=== PATIENT | male | born 1955 | race Caucasian/White ===

== ENCOUNTER 2017-11-25 22:34 | Inpatient (IN) | payer OTHER ==
[~2017-11-25] VITALS: Ht 180.3 cm; Wt 70.7 kg
--- NOTE | ~2017-11-25 | HC ---
[facility] [place] [address] CONSULTATION Name: LINA ALARCON Room #: 217-P [facility] IN ..#: [id number] Admission: 11/25/17 Attend Phys: Manuel Oliver MD Discharge: 11/28/17 Date of : 59 Report #: [id number] THIS REPORT FOR: //name// CC: FAM ernesto Mares MD DATE OF SERVICE: 11/26/2017 HISTORY OF PRESENT ILLNESS: The patient is a 62-year-old male with a recent hospitalization at his local hospital for chest pain and GI bleed. The patient has a previous history of coronary artery disease. He underwent a cardiac catheterization during this hospitalization, which lasted from 11/14/2017 to 11/19/2017. Apparently, he had a new stent placed. At that time, he had an upper GI bleed, underwent an upper endoscopy that showed esophagitis, gastritis and a duodenal ulcer that was apparently clipped. He did have a drop in his hemoglobin and was transfused 4 units of packed cells during the hospitalization. He had a repeat upper endoscopy prior to his discharge and there was no evidence of bleeding. It appeared the ulcer was healing well per the report. He was discharged on PPI therapy, but also on aspirin and Plavix. His last dose of aspirin and Plavix was yesterday. He did have recurrent chest pain, which was the reason for admission and transfer. He denies any chest pain today. No shortness of breath. He denies any hematemesis since his last hospitalization. He was having melanotic stools during that hospitalization, but he now denies any further melena. He does report, however, a small amount of bright red blood per rectum at times. He has had 2 or 3 episodes in the last few days. He denies any abdominal pain. He denies any anal canal pain. No previous history of colonoscopy. No family history of colon cancer. His hemoglobin on discharge from previous hospitalization was 10.3, his hemoglobin here is 9.2 this morning and it was 9.1 on admission. He denies any fevers or chills. ALLERGIES: No known drug allergies. PAST MEDICAL HISTORY: Coronary artery disease, status post stent placement recently; history of upper GI bleed due to duodenal ulcer, as described above; also history of esophagitis and gastritis, the patient has been on PPI therapy; hypercholesterolemia; hypertension and degenerative joint disease. MEDICATIONS: On admission, Lopressor, aspirin, Plavix, Ventolin, vitamin C, Lipitor, Celexa, folic acid, Cheraw, Zestril, Protonix 40 mg every day, multivitamin and thiamine. REVIEW OF SYSTEMS: As per HPI. [address] [address] CONSULTATION Name: LINA ALARCON Room #: 217-P [facility] IN M.R.#: [id number] Admission: 11/25/17 Attend Phys: Manuel Oliver MD Discharge: 11/28/17 Date of : 59 Report #: [id number] FAMILY HISTORY: Negative for colon cancer or inflammatory bowel disease. SOCIAL HISTORY: He has a long history of cigarette smoking. He consumes alcohol on a daily basis. PHYSICAL EXAMINATION: VITAL SIGNS: Temperature is 98.6, pulse 89, blood pressure 138/78 and respiratory rate is 22. GENERAL: He is alert and oriented x 3, in no acute distress. HEENT: Sclerae nonicteric. Oropharynx clear. NECK: Supple, without lymphadenopathy. CARDIOVASCULAR: Regular rate and rhythm. CHEST: Clear to auscultation bilaterally. ABDOMEN: Soft. He is nontender, nondistended. Normoactive bowel sounds. EXTREMITIES: No cyanosis, clubbing or edema. LABORATORY DATA: Sodium 132, potassium 4.3, chloride 99, bicarbonate 24, BUN 7, creatinine 0.8 and glucose 97. AST is 18, total bilirubin 0.5, direct bilirubin 0.2, calcium 8.8, alkaline phosphatase 61 and ALT is 14. Total protein 6.1. Albumin is 2.8. Cholesterol 89. WBC is 10.0, hemoglobin 9.2, MCV is 84.8 and platelet count is 353,000. TSH 0.531. Troponin less than 0.06. ASSESSMENT AND PLAN: 1. Anemia, history of recent upper gastrointestinal bleed. The patient had a duodenal ulcer that was bleeding during that hospitalization. He has not had any melanotic stools since then. His hemoglobin is fairly stable; it was 10.3 on discharge from that hospitalization and it is 9.1 at this time. I do not think he needs a repeat upper endoscopy at this time unless his symptoms change. We would continue PPI therapy. 2. Bright red blood per rectum. At some point, the patient needs a colonoscopy; however, due to his recent anticoagulation therapy as well as being on aspirin and Plavix, may consider holding this to a later date. If the patient has significant bleeding, we will proceed with colonoscopy. We will continue to monitor his hemoglobin closely. Thank you for allowing me to participate in his care. <ELECTRONICALLY SIGNED> By: Bill Winter MD 12/06/17 0823 1108 2311 Bill Winter MD /nt
--- NOTE | ~2017-11-25 | EKG ---
[address] [address] ELECTROCARDIOGRAM REPORT Name: LINA ALARCON Room #: 217- ADM IN M.R.#: [id number] Admission: 11/25/17 Attend Phys: Fang Webb Discharge: Date of : 59 Report #: [id number] THIS REPORT FOR: //name// [facility] Test Date: 2017-11-26 Test Time: 08:10:28 Pat Name: LINA ALARCON Department: Room: 217 Gender: M Protection Specialist: LELIA : 1955 Requested By: Brenna Prater Order Number: [id number] MD: Bebo Mares Measurements Intervals [place] Rate: 74 P: 57 TN: 161 QRS: -26 QRSD: 96 T: 17 QT: 394 QTc: 438 Interpretive Statements Sinus rhythm Borderline left axis deviation No previous ECG available for comparison Electronically Signed On 11-26-2017 13:31:43 CDT by Bebo Mares [email or web address] <ELECTRONICALLY SIGNED> By: Bebo Mares MD 11/26/17 1331 0810 08 Bebo Mares MD /RILEY
--- NOTE | ~2017-11-25 | 2DMMODE ---
[facility] [email or web address] [address] 2 D/M-MODE ECHOCARDIOGRAM Name: DORIANLINA Hogan Room #: 217-P ADM IN M.R.#: [id number] Admission: 11/25/17 Attend Phys: Manuel Oliver MD Discharge: Date of : 59 Date of Service: 11/27/17 1315 Report #: [id number] THIS REPORT FOR: //name// APPROVED REPORT Study performed: 11/27/2017 11:29:53 EXAM: Comprehensive 2D, Doppler, and color-flow Echocardiogram Patient Location: Echo lab Room #: [facility] Status: routine BSA: 1.90 HR: 67 bpm BP: 145/68 mmHg Rhythm: NSR Other Information Study Quality: Adequate/Lung disease, coughing Indications Chest pain. Recent history of stent to RCA. Hx: HTN, PAD, tobacco abuse. 2D Dimensions RVDd: 35.91 mm IVSd: 9.84 (7-11mm) LVOT Diam: 22.23 (18-24mm) LVDd: 49.09 mm PWd: 9.84 (7-11mm) Ascending Ao: 33.17 (22-36mm) LVDs: 32.53 (25-40mm) Aortic Root: 34.98 mm Volumes Left Atrial Volume (Systole) Single Plane 4CH: 43.88 mL Single Plane 2CH: 42.10 mL LA ESV Index: 24.00 mL/m2 Aortic Valve AoV Peak Maury.: 0.97 m/s AO Peak Gr.: 3.79 mmHg LVOT Max P.96 mmHg LVOT Max V: 0.86 m/s SANJAY Vmax: 3.43 cm2 Mitral Valve E/A Ratio: 2.4 MV Decel. Time: 151.20 ms [facility] [place] [place] [address] 2 D/M-MODE ECHOCARDIOGRAM Name: LINA ALARCON Room #: 217-P [facility] IN .R.#: [id number] Admission: 11/25/17 Attend Phys: Manuel Oliver MD Discharge: Date of : 59 Date of Service: 11/27/17 1315 Report #: [id number] MV E Max Maury.: 0.89 m/s MV A Maury.: 0.37 m/s MV PHT: 43.85 ms IVRT: 83.04 ms Pulmonary Valve PV Peak Maury.: 0.80 m/s PV Peak Gr.: 2.56 mmHg Pulmonary Vein P Vein S: 0.38 m/s P Vein A: 0.34 m/s P Vein D: 0.56 m/s P Vein A Dur.: 124.6 msec P Vein S/D Ratio: 0.68 Tricuspid Valve TR Peak Maury.: 2.53 m/s RAP Estimate: 5.00 mmHg TR Peak Gr.: 25.65 mmHg PA Pressure: 31.00 mmHg Left Ventricle The left ventricle is normal size. There is normal LV segmental wall motion. There is normal left ventricular wall thickness. The overall left ventricular systolic function appears normal. LVEF is 60-65%. The left ventricular diastolic function is normal. Right Ventricle The right ventricle is normal size. The right ventricular systolic function is normal. Atria The left atrium size is normal. The right atrium size is normal. Aortic Valve The aortic valve is normal in structure. Minimal aortic regurgitation. There is no aortic valvular stenosis. Mitral Valve The mitral valve is normal in structure. Trace mitral regurgitation. No evidence of mitral valve stenosis. Tricuspid Valve The tricuspid valve is normal in structure. Trace to mild tricuspid regurgitation. Estimated PAP is 30-35mmHg. Pulmonic Valve The pulmonary valve is normal in structure. Trace pulmonic [facility] [address] [place] [address] 2 D/M-MODE ECHOCARDIOGRAM Name: LINA ALARCON Room #: 217-P [facility] IN ..#: [id number] Admission: 11/25/17 Attend Phys: Manuel Oliver MD Discharge: Date of : 59 Date of Service: 11/27/17 1315 Report #: [id number] regurgitation. Great Vessels The aortic root is normal in size. The ascending aorta is normal in size. IVC is normal in size and collapses >50% with inspiration. Pericardium There is no pericardial effusion. <Conclusion> The left ventricle is normal size. There is normal left ventricular wall thickness. The overall left ventricular systolic function appears normal. LVEF is 60-65%. The left ventricular diastolic function is normal. The right ventricle is normal size. The left atrium size is normal. The right atrium size is normal. The aortic valve is normal in structure. Minimal aortic regurgitation. There is no aortic valvular stenosis. The mitral valve is normal in structure. Trace mitral regurgitation. There is no pericardial effusion. <ELECTRONICALLY SIGNED> By: Bebo Mares MD 11/27/17 1315 1315 1315 Bebo Mares MD /INF
[2017-11-25] MEDS ORDERED: LOPRESSOR50 PO (23:33)
[2017-11-25] MEDS ORDERED: CHILDREN'S ASPI81 MG PO (23:34)
[2017-11-26] MEDS ORDERED: VENTOLIN HFA 1818 GM INH (00:17)
[2017-11-26] MEDS ORDERED: VITAMINC500 PO (00:17)
[2017-11-26] MEDS ORDERED: ATORVASTATIN CA40 MG PO (00:18)
[2017-11-26] MEDS ORDERED: CELEXA40 MG PO (00:19)
[2017-11-26] MEDS ORDERED: PLAVIX 75 MG TA75 M1 PO (00:19)
[2017-11-26] MEDS ORDERED: FOLIC ACID1 MG PO (00:20)
[2017-11-26 00:21] VITALS: BP 135/78
[2017-11-26] MEDS ORDERED: NORCO 7.5-3251 EACH PO (00:21)
[2017-11-26] MEDS ORDERED: LISINOPRIL20 MG PO (00:22)
[2017-11-26] MEDS ORDERED: UNICOMPLEX M TA1 TA1 PO (00:23)
[2017-11-26] MEDS ORDERED: PROTONIX40 M1 PO (00:23)
[2017-11-26] MEDS ORDERED: B-1100 MG PO (00:24)
[2017-11-26 01:35] LABS: HEMATOCRIT 26.1 % (42.0-52.0); HEMOGLOBIN 9.1 gm/dL (14.0-18.0)
[2017-11-26 04:59] VITALS: BP 140/75
[2017-11-26 05:50] LABS: HEMATOCRIT 27.6 % (42.0-52.0); HEMOGLOBIN 9.2 gm/dL (14.0-18.0); MCH 28.4 pg (26.0-34.0); MCHC 33.4 g/dL (28.0-37.0); MCV 84.8 fL (80.0-100.0); RBC 3.26 mil/uL (4.50-6.00); RDW 16.9 % (10.5-14.5)
[2017-11-26 05:59] LABS: CALCIUM 8.8 mg/dL (8.5-10.1); CREATININE 0.8 mg/dL (0.7-1.3); POTASSIUM 4.3 mmol/L (3.5-5.1)
[2017-11-26 06:06] LABS: CHOLESTEROL 89 mg/dL (<200); HDL CHOLESTEROL 52 mg/dL (>40); LDL CHOLESTEROL 33 mg/dL (<100); TC:HDL 1.7 Ratio (Not establshd); TRIGLYCERIDE 23 mg/dL (<150); VLDL 5 mg/dL (<40)
[2017-11-26 06:07] LABS: SERUM ASSESSMENT Clear
[2017-11-26 07:11] LABS: ALBUMIN 2.8 g/dL (3.4-5.0); DIRECT BILIRUBIN 0.2 mg/dL (<0.1-0.3); TOTAL BILIRUBIN 0.5 mg/dL (<0.1-1.0); TOTAL PROTEIN 6.1 g/dL (6.4-8.2)
[2017-11-26 07:33] VITALS: BP 138/78
[2017-11-26 12:09] VITALS: BP 150/83
[2017-11-26 15:47] VITALS: BP 150/91
[2017-11-26 20:07] VITALS: BP 127/70
[2017-11-27 00:27] LABS: ABSOLUTE NEUTROPHILS 8.3 thou/uL (1.4-8.2); BASOPHILS 0.3 % (0.0-2.0); EOSINOPHILS 1.8 % (0.0-3.0); HEMATOCRIT 26.2 % (42.0-52.0); LYMPHOCYTES 7.7 % (24.0-44.0); MCH 29.1 pg (26.0-34.0); MCHC 34.4 g/dL (28.0-37.0); MCV 84.6 fL (80.0-100.0); MONOCYTES 9.5 % (1.0-8.0); PLATELET COUNT 357 thou/uL (150-400); POLYS 80.7 % (36.0-66.0); RBC 3.09 mil/uL (4.50-6.00); WBC 10.3 thou/uL (4.0-11.0)
[2017-11-27 03:22] LABS: HEMATOCRIT 26.3 % (42.0-52.0); MCH 28.6 pg (26.0-34.0); MCHC 34.1 g/dL (28.0-37.0); MCV 83.9 fL (80.0-100.0); RBC 3.13 mil/uL (4.50-6.00); RDW 16.9 % (10.5-14.5); WBC 9.8 thou/uL (4.0-11.0)
[2017-11-27 03:34] LABS: CALCIUM 8.9 mg/dL (8.5-10.1); CREATININE 0.8 mg/dL (0.7-1.3); POTASSIUM 4.2 mmol/L (3.5-5.1)
[2017-11-27 03:42] VITALS: BP 139/83
[2017-11-27 08:25] VITALS: BP 145/68
[2017-11-27 14:54] VITALS: BP 143/78
[2017-11-27 14:58] VITALS: BP 122/72
[2017-11-27 15:03] VITALS: BP 133/73
[2017-11-27 20:36] VITALS: BP 134/72
[2017-11-28 04:04] LABS: CALCIUM 9.2 mg/dL (8.5-10.1); CREATININE 0.8 mg/dL (0.7-1.3); POTASSIUM 3.7 mmol/L (3.5-5.1)
[2017-11-28 04:10] VITALS: BP 130/72
[2017-11-28 04:27] LABS: ABSOLUTE NEUTROPHILS 7.1 thou/uL (1.4-8.2); BASOPHILS 0.5 % (0.0-2.0); EOSINOPHILS 2.8 % (0.0-3.0); HEMATOCRIT 26.8 % (42.0-52.0); LYMPHOCYTES 10.6 % (24.0-44.0); MCH 28.1 pg (26.0-34.0); MCHC 33.5 g/dL (28.0-37.0); MONOCYTES 11.1 % (1.0-8.0); PLATELET COUNT 375 thou/uL (150-400); RBC 3.19 mil/uL (4.50-6.00); RDW 17.1 % (10.5-14.5); WBC 9.5 thou/uL (4.0-11.0)
[2017-11-28 08:18] VITALS: BP 133/62
[2017-11-28] MEDS ORDERED: BENZONATATE100 MG PO (10:45)
[2017-11-28] MEDS ORDERED: LASIX 20 MG TAB20 MG PO (10:49)
[2017-11-28 10:59] VITALS: BP 126/72
[2017-11-28 15:10] VITALS: BP 143/79
[2017-11-28] MEDS ORDERED: KLOR-CON20 ME1 PO (16:44)
[2017-11-28] MEDS ORDERED: CEFUROXIME500 MG PO (16:44)
[2017-11-28 16:52] VITALS: BP 143/79
== END 2017-11-28 19:00 | disposition home or self-care (01) | DRG 378 ==
LOC: 2N 22:34
PROVIDERS: Hospitalist; Nurse Practitioner Acute Care
DX: K62.5 Hemorrhage of anus and rectum (principal); D62 Acute posthemorrhagic anemia; R07.9 Chest pain, unspecified; I25.10 Atherosclerotic heart disease of native coronary artery without angina pectoris; I10 Essential (primary) hypertension; F17.210 Nicotine dependence, cigarettes, uncomplicated; M19.90 Unspecified osteoarthritis, unspecified site; F10.10 Alcohol abuse, uncomplicated; K27.9 Peptic ulcer, site unspecified, unspecified as acute or chronic, without hemorrhage or perforation; I73.9 Peripheral vascular disease, unspecified; E78.5 Hyperlipidemia, unspecified; Z71.6 Tobacco abuse counseling; Z95.5 Presence of coronary angioplasty implant and graft; Z82.49 Family history of ischemic heart disease and other diseases of the circulatory system; Z80.51 Family history of malignant neoplasm of kidney; I25.2 Old myocardial infarction; Z95.828 Presence of other vascular implants and grafts
CPT/HCPCS: 10081

== ENCOUNTER 2018-01-01 15:50 | Inpatient (IN) | payer OTHER ==
[~2018-01-01] VITALS: Ht 180.3 cm; Wt 66.5 kg
--- NOTE | ~2018-01-01 | EKG ---
[address] [place] [address] ELECTROCARDIOGRAM REPORT Name: LINA ALARCON Room #: 350-P ADM IN M.R.#: [id number] Admission: 01/01/18 Attend Phys: Manuel Oliver MD Discharge: Date of : 59 Report #: [id number] THIS REPORT FOR: //name// [facility] Test Date: 2018-01-01 Test Time: 22:05:33 Pat Name: LINA ALARCON Department: Room: 350 P Gender: M Pouncer: Toby MORENO : 1955 Requested By: Sagar Westbrook Order Number: [id number] MD: Facundo Arora Measurements Intervals [place] Rate: 67 P: 22 ID: [id number] QRS: -20 QRSD: 102 T: 16 QT: 420 QTc: 444 Interpretive Statements Sinus rhythm Borderline left axis deviation Compared to ECG 11/26/2017 08:10:28 No significant changes Electronically Signed On 01-02-2018 7:42:13 [employer] DEVEL[employer] by Facundo Arora [email or web address] <ELECTRONICALLY SIGNED> By: Facundo Arora MD, [facility] 01/02/18 0742 04 04 Facundo Arora MD, [facility] /EPI
--- NOTE | ~2018-01-01 | HC ---
[facility] [place] [address] [place] [address] CONSULTATION Name: LINA ALARCON Room #: 350-P ADM IN M.R.#: [id number] Admission: 01/01/18 Attend Phys: Manuel Oliver MD Discharge: Date of : 59 Report #: [id number] THIS REPORT FOR: //name// CC: LAURA COATS FAM unknown Manuel Oliver DATE OF SERVICE: 01/01/2018 HISTORY OF PRESENT ILLNESS: The patient is a 62-year-old male seen last month by my partner, Dr. Mares. It looks like he had had a Synergy stent placed, a 3.5 x 13 Synergy stent placed to his RCA in [place], [place] on 11/14/2017. Apparently, he had some complications with some bleeding issues and had had hematochezia, dark stools. He had received a transfusion there. This was shortly after and then subsequently had clipping or some kind of therapeutic clipping of a duodenal ulcer and marked esophagitis on EGD. He comes in with some weakness and near syncope. Found to be anemic again, dark stools. Some orthostatic hypotension. CT scan was negative for a bleed. He was transferred here from [place]. He denies any anginal type symptoms. His last aspirin and Plavix dose were yesterday. He states he has been taking them, although I would certainly question his compliance. MEDICATIONS: He is also currently taking Lasix 20, potassium, Ceftin, metoprolol, Lipitor 40, Celexa, Plavix 75, folic acid, lisinopril 20, thiamine and multivitamin. PAST MEDICAL HISTORY: Positive for coronary artery disease with a stent placement, Synergy stent to the RCA. There are prior bilateral iliac stents from a stent card, hypertension, hypercholesterolemia, tobacco and alcohol abuse, history of GI bleeding with duodenal ulcer and esophagitis, DJD, COPD. FAMILY HISTORY: Extremely positive. Parents, brother and sister all have had either infarcts or bypass surgeries. He is trying to get disability. SOCIAL HISTORY: He is , lives somewhat independently. REVIEW OF SYSTEMS: Negative except for some nocturia and as stated above. LABORATORY WORK: Sodium 120. This is upon transfer. H and H was 7.0 and 21.9. Creatinine was 0.8. Troponin was negative. Alcohol level was 79. Magnesium was 1.9. Urine was unremarkable. CT of the head did not show any bleeding. EKG was sinus rhythm, leftward axis, nonspecific changes. PHYSICAL EXAMINATION: GENERAL: He is in no distress. He is alert. No chest pain. VITAL SIGNS: Blood pressure 170/80, pulse is 70s. [address] [address] CONSULTATION Name: LINA ALARCON Room #: 350-P [facility] IN M.R.#: [id number] Admission: 01/01/18 Attend Phys: Manuel Oliver MD Discharge: Date of : 59 Report #: [id number] HEENT: Eyes reveal xanthelasmas. Pharynx is clear. He is partially edentulous. NECK: Shows preserved upstrokes without JVD or bruits. LUNGS: Clear. CARDIOVASCULAR: Regular rate and rhythm, S1, S2 distant. ABDOMEN: Slightly tender in the epigastrium. Negative Degroot's. No rebound. Bowel sounds are noted. EXTREMITIES: Reveal trace of edema. Distal pulses diminished. There are bilateral femoral bruits. NEUROLOGIC: Intact. MUSCULOSKELETAL: No gross joint deformity. SKIN: Warm and dry. ASSESSMENT: 1. Coronary artery disease with drug-eluting stent placed to his right coronary artery 11/14/2017. 2. Peripheral vascular disease with history of bilateral iliac stents. 3. Chronic obstructive pulmonary disease, continued tobacco abuse. 4. Hypertension. 5. Hypercholesterolemia. 6. Strong family history of premature coronary artery disease. 7. Alcohol abuse. RECOMMENDATIONS AND PLAN: Obviously, we are having some active bleeding. There is going to need to be transfusion. GI has been planning a colonoscopy and EGD in the morning. We will need to give some strong consideration of restarting at least 1 antiplatelet agent and 6 weeks coronary drug-eluting stent. Risk could be high for a possible acute stent thrombosis without antiplatelet agents. Would like to initiate this, but depending on what GI findings in the morning. We will discuss with them in primary holding on antiplatelet medications. Discussed with Dr. Love lizarraga. Thank you for asking me to assist in the care of this patient. By: 2148 1256 Sagar Westbrook MD, [facility] /nt
--- NOTE | ~2018-01-01 | P ---
[facility] [place] [place] [address] PROCEDURE REPORT Name: LINA ALARCON Room #: 350-P [facility] IN M.R.#: [id number] Admission: 01/01/18 Attend Phys: Manuel Oliver MD Discharge: Date of : 59 Report #: [id number] THIS REPORT FOR: //name// CC: LAURA Monzon FAM unknown Manuel Oliver BRIEF HISTORY: The patient is a 62-year-old male with multiple medical problems who has a history of a month or so ago of bleeding with peptic ulcer disease, which required endoclip placement. Since that time, he has had continued drop in hemoglobin and was transferred to [facility] for the same reason. PREOPERATIVE DIAGNOSIS: History of ulcer disease with a drop in hemoglobin and anemia. POSTOPERATIVE DIAGNOSES: 1. Moderately diffuse gastritis with erythema in the antrum and nodularity in the body. 2. Small hiatus hernia. 3. Bulbar duodenitis. MEDICATIONS: Deep sedation with propofol. SPECIMEN: Biopsy of gastritis. ESTIMATED BLOOD LOSS: 3 mL. PROCEDURE: EGD with biopsy. FINDINGS: Prior to propofol sedation, procedure of upper endoscopy was discussed with the patient as well as potential risks and its complications. He indicates he understands and desires to proceed. With the patient in the left lateral decubitus position, the Olympus video endoscope was inserted in the cervical esophagus under direct vision without difficulty. As we advanced the scope into the stomach, the patient began to desat. The scope was withdrawn. The anesthesia then cared for the patient and he developed some laryngeal spasm and was intubated. The procedure was then restarted with his airway controlled. The scope was reinserted. The esophagus was normal. In view of his alcohol history, I do not see evidence of esophageal varices. Squamocolumnar junction was unremarkable. Intermittently, a small sliding type hiatus hernia was seen. No bleeding lesions were seen. The scope was advanced into the stomach, was examined on end view as well as retroflexed views. There was nodularity in the body of the stomach. No gastric varices were seen. There was erythema in the antrum. No ulcers were seen. No bleeding [facility] [address] [place] [address] PROCEDURE REPORT Name: LINA AALRCON Room #: 350-P [facility] IN ..#: [id number] Admission: 01/01/18 Attend Phys: Manuel Oliver MD Discharge: Date of : 59 Report #: [id number] lesions were seen. Upon retroflexion, no mass lesions were seen. Examination of duodenal bulb revealed patchy bulbar duodenitis, but no ulcer. Duodenal sweep down to third portion was unremarkable. At that point, the scope was slowly withdrawn and careful circumferential views confirmed the above finding. The patient tolerated the procedure well. Source of bleeding not identified. Ulcers have healed. Biopsies obtained for H. pylori. PLAN: Proceed with colonoscopy. <ELECTRONICALLY SIGNED> By: Leopoldo Wright MD 01/03/18 1907 1627 0445 Leopoldo Wright MD /nt
--- NOTE | ~2018-01-01 | P ---
[facility] [place] [address] PROCEDURE REPORT Name: LINA ALARCON Room #: 350-P [facility] IN M.R.#: [id number] Admission: 01/01/18 Attend Phys: Manuel Oliver MD Discharge: Date of : 59 Report #: [id number] THIS REPORT FOR: //name// CC: LAURA Monzon FAM unknown Manuel Oliver BRIEF HISTORY: The patient is a 62-year-old male with recurrent GI bleeding. PREOPERATIVE DIAGNOSIS: Gastrointestinal bleeding. POSTOPERATIVE DIAGNOSES: 1. Multiple nonbleeding AVMs in cecum and proximal ascending colon. 2. Moderate sigmoid diverticulosis coli. 3. Diminutive polyp, 60 cm. MEDICATIONS: Intubation, general anesthesia. SPECIMEN: Polyp at 60 cm. ESTIMATED BLOOD LOSS: 3 mL. PROCEDURE: Colonoscopy to the cecum and terminal ileum with hemostasis and biopsy. FINDINGS: Prior to sedation, the procedure of colonoscopy is reviewed with the patient as well as potential risks and its complications. He indicates he understands and desires to proceed. With the patient in the left lateral decubitus position, digital examination was completed, which revealed no abnormalities. Subsequently, the Olympus video colonoscope was introduced in the rectum and advanced under direct vision to the cecum. Done with minimal difficulty. The cecum was identified by the ileocecal valve and the appendiceal orifice. I was able to visualize the distal segment of the terminal ileum, which was inspected and noted to be unremarkable. There was no blood seen in the terminal ileum. At that point, the scope was slowly withdrawn and careful circumferential views were obtained. As we withdrew the scope, the prep was noted to be good. The mucosa was within normal limits, normal vascular pattern and normal light reflex. In the cecum and the very proximal ascending colon, a total of four nonbleeding AVMs were seen. The largest was about a centimeter. They were all treated with argon plasma coagulation. There was good hemostasis. The scope was further withdrawn and no additional abnormalities were noted until about 60 cm at which point a diminutive polyp was seen and removed by biopsy. The scope was further withdrawn and he was noted to have moderate sigmoid diverticulosis coli. The scope was withdrawn in the rectum. Upon retroflexion, no abnormalities were [facility] [address] [place] [address] PROCEDURE REPORT Name: LINA ALARCON Samira Room #: 350-P [facility] IN [facility].#: [id number] Admission: 01/01/18 Attend Phys: Manuel Oliver MD Discharge: Date of : 59 Report #: [id number] seen. Scope was withdrawn. The patient tolerated the procedure well. DISPOSITION: The patient with GI bleeding. No blood was seen during this exam. He did have 4 nonbleeding AVMs, which may have been a potential site of blood loss. We will monitor hemoglobin at this point in time and followup the path with regards to the polyp. Please see upper endoscopy report as well. <ELECTRONICALLY SIGNED> By: Leopoldo Wright MD 01/03/18 1907 1713 0500 Leopoldo Wright MD /nt
--- NOTE | ~2018-01-01 | PATH ---
[facility] [place] [address] PATHOLOGY RPT PROCEDURE Name: LINA CAMPOS Room #: 350-P [facility] IN M.R.#: [id number] Admission: 01/01/18 Date of : 59 Discharge: 01/04/18 Report #: [id number] Path Case #: [id number] [facility] Accession Number: [id number] . 01 Material submitted: . PART A: GASTRITIS PART B: POLYP AT 60 CM . 01 Clinical history: . Pre-op diagnosis: History of peptic ulcer disease, anemia, decreased hemoglobin Post-op diagnosis: Gastritis, duodenitis, small hiatus hernia . 02 Diagnosis: A. Gastric biopsy "gastritis": - Mild chronic reactive gastropathy with mild chronic inflammation. - The immunoperoxidase stain for Helicobacter pylori is negative. . B. Colonic mucosa "polyp at 60 cm": - Tubular adenoma. - There is no evidence of high-grade dysplasia or malignancy. (SHA:pit 01/04/2018) QTP/01/04/2018 . 02 Electronically signed: . Alonzo Fields MD, Pathologist NPI- [id number] . 01 Gross description: . A. The specimen is received in formalin, labeled "Lina Campos, gastritis, R/O H. pylori". Received are three segments of pale woodward soft tissue ranging in size from 0.3 to 0.7 cm in maximum dimensions. The specimen is submitted entirely in cassette A1. . B. The specimen is received in formalin, labeled "Lina Campos, polyp at 60 cm". Received is a segment of pale woodward soft tissue measuring 0.3 cm in maximum dimensions. The specimen is submitted entirely in cassette B1. (CAA; 01/03/2018) QAC/QAC . 02 Pathologist provided ICD-10: K29.50, K31.9, D12.6 . 02 CPT . 293216, 074110, Y17823 Specimen Comment: A courtesy copy of this report has been sent to Specimen Comment: [phone], . [place] [address] PATHOLOGY RPT PROCEDURE Name: LINA CAMPOS Room #: 350-P [facility] IN M.R.#: [id number] Admission: 01/01/18 Date of : 59 Discharge: 01/04/18 Report #: [id number] Path Case #: [id number] Specimen Comment: Report sent to / DR CORONA Specimen Comment: A duplicate report has been generated due to demographic updates. Performed at: [address], [place] [id number] MD Ezra Jovel MD Phone: [phone] Performed at: [address] [id number] MD Kecia Vinson MD Phone: [phone]
[~2018-01-01 15:50] MED LIST: ATORVASTATIN CA40 MG PO; B-1100 MG PO; BENZONATATE100 MG PO; CEFUROXIME500 MG PO; CELEXA40 MG PO; CHILDREN'S ASPI81 MG PO; FOLIC ACID1 MG PO; KLOR-CON20 ME1 PO; LASIX 20 MG TAB20 MG PO; LISINOPRIL20 MG PO; LOPRESSOR50 PO; NORCO 7.5-3251 EACH PO; PLAVIX 75 MG TA75 M1 PO; PROTONIX40 M1 PO; UNICOMPLEX M TA1 TA1 PO; VENTOLIN HFA 1818 GM INH; VITAMINC500 PO
[2018-01-01 17:17] VITALS: BP 172/88
[2018-01-01 18:02] LABS: HEMATOCRIT 21.6 % (42.0-52.0)
[2018-01-01 19:33] VITALS: BP 175/88
[2018-01-01 22:23] VITALS: BP 145/72; BP 153/75
[2018-01-02] VITALS (7 sets, daily range): BP systolic 121–147; BP diastolic 70–82
[2018-01-02 06:22] LABS: HEMATOCRIT 23.7 % (42.0-52.0); HEMOGLOBIN 7.7 gm/dL (14.0-18.0); MCH 24.6 pg (26.0-34.0); MCHC 32.4 g/dL (28.0-37.0); MCV 75.8 fL (80.0-100.0); RBC 3.12 mil/uL (4.50-6.00); RDW 19.1 % (10.5-14.5); WBC 5.4 thou/uL (4.0-11.0)
[2018-01-02 06:33] LABS: CREATININE 0.8 mg/dL (0.7-1.3); MAGNESIUM 1.9 mg/dL (1.8-2.4); POTASSIUM 3.9 mmol/L (3.5-5.1)
[2018-01-03 04:05] VITALS: BP 133/79
[2018-01-03 05:58] LABS: HEMATOCRIT 24.6 % (42.0-52.0); HEMOGLOBIN 8.1 gm/dL (14.0-18.0); MCHC 32.8 g/dL (28.0-37.0); MCV 76.2 fL (80.0-100.0); RBC 3.23 mil/uL (4.50-6.00); RDW 18.8 % (10.5-14.5); WBC 9.2 thou/uL (4.0-11.0)
[2018-01-03 06:10] LABS: CALCIUM 8.4 mg/dL (8.5-10.1); CREATININE 0.7 mg/dL (0.7-1.3); MAGNESIUM 1.8 mg/dL (1.8-2.4); POTASSIUM 3.6 mmol/L (3.5-5.1)
[2018-01-03 07:29] VITALS: BP 134/70
[2018-01-03 11:19] VITALS: BP 136/73
[2018-01-03 15:49] VITALS: BP 126/66
[2018-01-03 19:20] VITALS: BP 139/78
[2018-01-04 03:55] VITALS: BP 133/56
[2018-01-04 05:57] LABS: HEMATOCRIT 25.6 % (42.0-52.0); HEMOGLOBIN 8.4 gm/dL (14.0-18.0); MCH 24.8 pg (26.0-34.0); MCHC 32.6 g/dL (28.0-37.0); MCV 76.1 fL (80.0-100.0); RBC 3.37 mil/uL (4.50-6.00); RDW 19.3 % (10.5-14.5); WBC 8.4 thou/uL (4.0-11.0)
[2018-01-04 06:10] LABS: CALCIUM 8.7 mg/dL (8.5-10.1); CREATININE 0.8 mg/dL (0.7-1.3); MAGNESIUM 1.7 mg/dL (1.8-2.4); POTASSIUM 3.9 mmol/L (3.5-5.1)
[2018-01-04 08:00] VITALS: BP 150/77
[2018-01-04 11:24] VITALS: BP 110/66
[2018-01-04] MEDS ORDERED: DOXYCYCLINE 10100 M1 PO (13:09)
[2018-01-04 13:28] VITALS: BP 110/66
[2018-01-04 14:36] VITALS: BP 110/66
== END 2018-01-04 14:17 | disposition home or self-care (01) | DRG 378 ==
LOC: 3W 15:50 → ENTRNSPT 01-04 13:56 → 3W 01-04 14:17
PROVIDERS: Internal Medicine
PROC: 30233N1 Transfusion of Nonautologous Red Blood Cells into Peripheral Vein, Percutaneous Approach (ICD-10-PCS; principal; 2018-01-01)
PROC: 0DBK8ZZ Excision of Ascending Colon, Via Natural or Artificial Opening Endoscopic (ICD-10-PCS; 2018-01-02)
PROC: 0DB68ZX Excision of Stomach, Via Natural or Artificial Opening Endoscopic, Diagnostic (ICD-10-PCS; 2018-01-02)
PROC: 0W3P8ZZ Control Bleeding in Gastrointestinal Tract, Via Natural or Artificial Opening Endoscopic (ICD-10-PCS; 2018-01-02)
DX: K55.21 Angiodysplasia of colon with hemorrhage (principal); D62 Acute posthemorrhagic anemia; I25.10 Atherosclerotic heart disease of native coronary artery without angina pectoris; I10 Essential (primary) hypertension; M19.90 Unspecified osteoarthritis, unspecified site; K29.80 Duodenitis without bleeding; K29.70 Gastritis, unspecified, without bleeding; K57.30 Diverticulosis of large intestine without perforation or abscess without bleeding; F17.210 Nicotine dependence, cigarettes, uncomplicated; J44.9 Chronic obstructive pulmonary disease, unspecified; K63.5 Polyp of colon; K44.9 Diaphragmatic hernia without obstruction or gangrene; I73.9 Peripheral vascular disease, unspecified; Z95.820 Peripheral vascular angioplasty status with implants and grafts; Z95.5 Presence of coronary angioplasty implant and graft; Z87.11 Personal history of peptic ulcer disease; Z82.49 Family history of ischemic heart disease and other diseases of the circulatory system; Z85.528 Personal history of other malignant neoplasm of kidney; Z23 Encounter for immunization; Z79.899 Other long term (current) drug therapy
CPT/HCPCS: 10879; 62110; 62900; 70005